=== PATIENT | female | born 1995 | race Caucasian/White ===

== ENCOUNTER 2021-03-08 12:40 | Observation (INO) | payer BC ==
[~2021-03-08] VITALS: Ht 162.6 cm; Wt 89.8 kg
[2021-03-08 13:02] VITALS: BP 113/63
[2021-03-08] MEDS ORDERED: PRETAB PO (15:01)
[2021-03-08] MEDS ORDERED: BECL10.62 INH (15:01)
== END 2021-03-08 16:00 | disposition home or self-care (01) ==
LOC: MLD 12:40
PROVIDERS: ADMIT Obstetrics & Gynecology; ATTEND Obstetrics & Gynecology
DX: O44.03 Complete placenta previa NOS or without hemorrhage, third trimester (principal); O99.891 Other specified diseases and conditions complicating pregnancy; J30.81 Allergic rhinitis due to animal (cat) (dog) hair and dander; Z91.013 Allergy to seafood; Z3A.35 35 weeks gestation of pregnancy
CPT/HCPCS: 59025; 76805; 81000; G0378